=== PATIENT | male | born 1965 | race Caucasian/White ===

== ENCOUNTER 2018-01-17 02:27 | Emergency (ER) | payer MEDICARE, SELFPAY ==
[2018-01-17 02:34] VITALS: BP 140/88; PULSE 81; RESP 22; TEMP 36.6; O2SAT 97
--- NOTE | 2018-01-17 02:48 | ED.GENADUL_ITS ---
Disposition Clinical Impression: Left flank pain, Subtherapeutic international normalized ratio (INR) Disposition: HOME Condition: Good Instructions: Flank Pain (ED) Additional Instructions: Please take your regular Coumadin as directed. Your INR was below the level that it should be. Do not miss any doses, and avoid foods high in vitamin K such as spinach. Please take Tylenol for your pain. If you notice any worsening of your symptoms, or any new symptoms such as vomiting, diarrhea, fever, chills, shortness of breath, chest pain, numbness, weakness, or fainting , please return immediately to the emergency department for reevaluation. Please follow up with your primary care provider as soon as possible for reassessment and reevaluation. As always, it was a pleasure participating in your medical care today. Prescriptions: Acetaminophen [Tylenol Extra Strength] 1,000 mg PO Q6H 5 Days #60 tab Medical Decision Making - Medical Decision Making This is a pleasant 52-year-old gentleman who presents for evaluation of left flank pain. He states that the symptoms are slightly chronic in nature however they have worsened in acuity tonight. He was in [place] where he was recommended that he had a left stent for a left-sided kidney stone, but never got this secondary to him moving back. He is on Coumadin for DVT. Will evaluate for any potential kidney stone, or other acute abdominal pathology at this time, as well as a cardiac workup for atypical chest pain. CT of the abdomen pelvis results have returned and per virtual radiology there is no acute findings. He does have a nonobstructing renal calculi however no evidence of calculus or hydronephrosis. The patient's laboratory workup has returned relatively benign with no significant leukocytosis, hematuria, or other abnormalities. Patient's pain has been well controlled on Toradol, and he is sleeping comfortably. Patient's EKG demonstrated less than [address] elevation in V2 however review of prior EKGs demonstrate consistency of this elevation with no acute changes, suggesting chronic T-wave changes with no acute evidence of STEMI. With a benign laboratory workup, negative imaging, pain being well controlled, negative troponin, and an unchanged EKG feel that the patient can be discharged home. He may have had a kidney stone which she has passed, musculoskeletal muscle spasm, or his pain may be secondary to his chronic stone which I feel less likely. Waiting on urinalysis at this time. The patient's INR has come back and it is notably subtherapeutic. We will encourage him to take his Coumadin at home. EKG 3: 47 Rate 70, sinus rhythm, intervals normal, less than [address] elevation in V2, Q- wave in lead II, III, and aVF. EKG finding appears inconsistent with Wellen syndrome at this time. Review of prior EKG from 11/29/13 demonstrates new evidence of Q waves which could be consistent with his cardiac history in the last [address], [address] elevation component for V2, and V3 is present on prior EKG. Urinalysis has returned shows no evidence of infection or hematuria. Patient's pain is completely resolved at this point. We will get a family doctor for him for close follow-up, we discussed red flags which to return the patient understands. I have extensively reviewed the treatment plan and discharge instructions with the patient. I have addressed all patient concerns at this time. The patient was made aware of what symptoms to monitor for that would warrant a return to the emergency department. Discussed the plan with the patient, they demonstrate verbal understanding and agreement with our assessment and plan at this time. 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 Patient states that he was in [place] last month and surgery was recommended for stenting for a left-sided kidney stone however he did not have the surgery secondary to him moving back to [place]. He states that he has chronic pain on the left, however tonight it got noticeably worse. He denies any radiation, vomiting or diarrhea. He denies any chest pain shortness of breath. He is on Coumadin for history of DVT. He has no other complaints at this time. He denies any recent surgeries, any IV or illicit drug use, or any pertinent family history. - Related Data Warfarin [Coumadin] 5 mg PO DAILY 09/09/13 Aspirin [Aspir 81] 81 mg PO DAILY 10/16/13 Atorvastatin [Lipitor] 80 mg PO DAILY 10/16/13 Clopidogrel Bisulfate [Plavix] 75 mg PO DAILY 10/16/13 Isosorbide Mononitrate [Imdur] 30 mg PO DAILY 10/16/13 Lisinopril 5 mg PO BID 10/16/13 Metoprolol [Lopressor] 25 mg PO DAILY 10/16/13 Nitroglycerin 0.4 mg SL DIRECTED PRN 10/16/13 Pantoprazole [Protonix] 1 tab PO DAILY 10/16/13 Warfarin [Coumadin] 7.5 mg PO DIRECTED 11/13/13 Oxycodone HCl/Acetaminophen [Percocet 10-325 mg Tablet] 1 each PO Q6H PRN #10 tablet 11/14/13 Acetaminophen [Tylenol Extra Strength] 1,000 mg PO Q6H 5 Days #60 tab 01/17/18 Allergies Allergy/AdvReac Type Severity Reaction Status Date / Time ibuprofen AdvReac Intermediate vomiting Unverified 03/16/14 23:32 tramadol AdvReac Intermediate Vomiting Unverified 03/16/14 23:32 Review of Systems Other: 10 point review of systems was performed, pertinent positives and negatives are noted in the history of present illness. General Exam - Other Other exam information: 1.Const: Well-nourished, Well-developed, appearing stated age 2.Eyes: PERRL, no conjunctival injection, and symmetrical lids. 3.ENT: Atraumatic external nose and ears. Moist MM. Neck: Symmetric, trachea midline, No thyromegaly. 4.CVS: +S1/S2, No murmurs or gallops. Peripheral pulses 2+ and equal in all extremities. Brisk capillary refill in all extremities. 5.RESP: Unlabored respiratory effort. Clear to auscultation bilaterally. No wheezes rales or rhonchi, however the patient does demonstrate a mild cough. 6.GI: Soft, Nontender/Nondistended, No hepatosplenomegaly. No guarding or rebound. Mild left-sided CVA tenderness on percussion. No abdominal pain on palpation. 7.MSK: Normocephalic/Atraumatic, Extremities w/o deformity or ttp No cyanosis or clubbing, Normal movement of all extremities, no calf tenderness. 8.Skin: Warm, Dry. No rashes or lesions. 9.Neuro: manager compensation II-XII grossly intact. Sensation grossly intact, no focal neurologic deficits. 10.Psych: (AAO) x3. Appropriate mood and affect Course Vital Signs - 24 hr 01/17/18 02:34 Temperature 36.6 C Pulse 81 Respiratory 22 Rate Blood Pressure 140/88 Pulse Oximetry 97
[2018-01-17 03:09] LABS: Abs Immature Grans 0.01 k/cumm (0.0-0.09); Absolute Basophil Count 0.02 k/cumm (0.0-0.2); Absolute Eosinophil Count 0.34 k/cumm (0.0-0.7); Absolute Lymphocyte Count 2.78 k/cumm (1.2-3.4); Absolute Monocyte Count 1.15 k/cumm (0.11-0.7); Absolute Neutrophil Count 4.17 k/cumm (1.2-6.7); Basophils % 0.2; HCT 47.4 % (40.0-50.0); Immature Grans % 0.1; Lymphocytes % 32.8; Mean Corp. HGB Concentration 33.8 g/dL (32.0-36.0); Mean Corpuscular Hemoglobin 30.7 pg (27.0-33.0); Mean Platelet Volume 10.7 fL (8.0-11.0); Monocytes % 13.6; Neutrophils % 49.3; Platelet Count 156 x1000/uL (130-400); RBC 5.21 m/cumm (4.50-6.00); RBC Distribution Width 13.7 % (11.8-14.1); White Blood Cell Count 8.47 k/cumm (4.4-10.8)
[2018-01-17] MEDS: Acetaminophen 500 MG TAB 1000 MG PO (03:20)
[2018-01-17] MEDS: Ketorolac 30 MG/ML VIAL 15 MG IV (03:21)
[2018-01-17] MEDS: Normal Saline 1,000 ML 1000 ML IV ×2 (03:22→05:05)
--- NOTE | 2018-01-17 03:30 | DI.RPTCT_ITS ---
SYMPTOM/DIAGNOSIS: LEFT FLANK PAIN, H/O KIDNEY STONE ABDOMINAL AND PELVIC CT 01/17/[address] was performed. Images obtained through the lung bases are unremarkable. Liver, spleen, pancreas gallbladder and bile ducts are unremarkable by noncontrast criteria. Abdominal aorta is of normal diameter. No abdominal or pelvic adenopathy seen. Note is made of an IVC filter in place. Small bilateral fat containing inguinal hernias noted. Appendix is normal. No evidence of bowel obstruction or diverticulitis. Adrenals appear normal bilaterally except for a low attenuation rounded 21 mm left adrenal mass probably representing benign disease. There is an apparent lower pole right renal cyst measuring roughly 2 cm in diameter. Otherwise right kidney and ureter are unremarkable. There are multiple calculi in the lower pole of the left kidney and small left renal cortical calculus is also noted. There is a prominent extra renal pelvis on the left and there are findings raising the possibility of hydronephrosis. The proximal ureter is non dilated and there is no obstructing stone. The findings could represent prominent extra renal pelvis vs chronic or acute UPJ obstruction with hydronephrosis. No additional ureteral findings. Urinary bladder grossly unremarkable by noncontrast appearance. CONCLUSION: 1. Nonobstructing left renal calculi 2. Possible left hydronephrosis, acute vs chronic UPJ obstruction. Correlation with CT urogram should be considered if the patient does not have previous examinations available for comparison. The findings were discussed with Dr. Villalobos in the E.D.
[2018-01-17 03:38] LABS: ALT 73 U/L (12-78); AST 42 U/L (15-37); Albumin 3.3 g/dL (3.4-5.0); Alkaline Phosphatase 53 U/L (46-116); Anion Gap 10.1 mmol/L (3-11); BUN 17 mg/dL (7-18); Bilirubin, Total 0.4 mg/dL (0.2-1.0); CO2 27.9 mmol/L (21.0-32.0); CREATININE 1.12 mg/dL (0.70-1.30); Chloride 105 mmol/L (98-107); Glucose 108 mg/dL (70-100); Potassium 3.8 mmol/L (3.5-5.1); Sodium 143 mmol/L (136-145); Total Protein 6.9 g/dL (6.4-8.2)
[2018-01-17 03:47] LABS: Troponin I < 0.02 ng/mL (0.00-0.06)
[2018-01-17 03:59] LABS: Lipase 169 U/L (73-393)
--- NOTE | 2018-01-17 04:21 | DI.VRAD_ITS ---
EXAM: CT Abdomen and Pelvis Without Intravenous Contrast CLINICAL HISTORY: 52 years old, male; Pain; Other: L flank pain; Prior surgery; Surgery date: 6+ months; Surgery type: Stent; Patient HX: HX of kidney stone TECHNIQUE: Axial computed tomography images of the abdomen and pelvis without intravenous contrast. All CT scans at this facility use at least one of these dose optimization techniques: automated exposure control; mA and/or kV adjustment per patient size (includes targeted exams where dose is matched to clinical indication); or iterative reconstruction. Coronal and sagittal reformatted images were created and reviewed. COMPARISON: No relevant prior studies available. FINDINGS: Lung bases: Unremarkable. No mass. No consolidation. ABDOMEN: Liver: Unremarkable. Gallbladder and bile ducts: Unremarkable. No calcified stones. No ductal dilation. Pancreas: Unremarkable. No ductal dilation. Spleen: Unremarkable. No splenomegaly. Adrenals: Left adrenal gland adenoma. Kidneys and ureters: Renal cysts. Nonobstructing renal calculi. No obstructing urinary calculus or hydronephrosis. Stomach and bowel: Unremarkable. No obstruction. No mucosal thickening. PELVIS: Appendix: No findings to suggest acute appendicitis. Bladder: Unremarkable. No stones. Reproductive: Unremarkable as visualized. ABDOMEN and PELVIS: Intraperitoneal space: Unremarkable. No free air. No significant fluid collection. Bones/joints: No acute fracture. No dislocation. Soft tissues: Tiny fat-containing inguinal hernias. Vasculature: Infrarenal IVC filter. No abdominal aortic aneurysm. Lymph nodes: Unremarkable. No enlarged lymph nodes. IMPRESSION: No acute findings. Dictated and Authenticated by: Adam Narayan MD. Ordering:TALHA SAEZ MD
[2018-01-17 04:44] LABS: PTT Activated 25.2 sec (21.0-31.4); Prothrombin Time 9.6 sec (9.3-10.8)
[2018-01-17] MEDS: Ondansetron 4 MG/2 ML VIAL IVP (05:05)
[2018-01-17] MEDS: MORPHine 10 MG/ML VIAL 4 MG IVP (05:06)
[2018-01-17 05:09] VITALS: BP 128/85; PULSE 75; RESP 20; TEMP 36.6; O2SAT 95
[2018-01-17 05:37] LABS: Bilirubin Negative (Negative); Blood Negative (Negative); Clarity Clear; Glucose Negative (Negative); Ketones Negative (Negative); Leukocyte Esterase Negative (Negative); Nitrite Negative (Negative); Specific Gravity 1.025 (1.005-1.025); Urobilinogen 0.2 EU/dL (Up TO 0.2); pH 5.5 (5-8)
--- NOTE | 2018-01-17 08:42 | ED.FU.B_ITS ---
- Follow Up Follow Up Plan: Dr. Perez called and states there is left hydro on patient's CT and ?left upj obstruction. Per Dr. storm's note he has seen urology in [place], will place him on our health care legal assistant's list to see urology LU[facility]
--- NOTE | 2018-01-17 09:07 | PDOC.ERCMPRO ---
Care Management Progress Note 01/17-Dr. Ambriz/Dr. Villalobos requested assistance with a urology f/u as soon as possible for left hydronephrosis, ?UPJ obstruction. Referral faxed to Urology this am.
== END 2018-01-17 06:00 | disposition home or self-care (01) ==
PROVIDERS: Emergency Provider Student in an Organized Health Care Education/Training Program; PCP Internal Medicine
DX: R10.32 Left lower quadrant pain (principal); R79.1 Abnormal coagulation profile; T45.516A Underdosing of anticoagulants, initial encounter; H91.3 Deaf nonspeaking, not elsewhere classified; Z87.442 Personal history of urinary calculi
CPT/HCPCS: 74176; 93005; 96361; 96374; 96375; 99284 ×2; J1885; J2270; J2405; 36415; 80053; 83690; 81003; 84484; 85025; 85610; 85730; 87086; 93010